=== PATIENT | male | born 1930 | race Caucasian/White ===

== ENCOUNTER 2019-03-30 08:56 | Emergency (ER) | payer OTHER ==
--- NOTE | 2019-03-30 09:08 | EDPHY ---
H & P Stated Complaint: near-syncope in shower this AM Time Seen by Provider: 03/30/19 09:08 HPI/ROS: CHIEF COMPLAINT: Presyncope HISTORY OF PRESENT ILLNESS: The patient presents to the ED after a presyncopal event that occurred in shower today. The patient was able to sit down did not pass out. He did not sustain any injury. The patient did have some symptoms of mild fatigue yesterday. He did skip lunch. He reports 1 episode of loose stools/diarrhea. The patient denies any chest pain or shortness of breath. He denies any fever or dysuria. He has no complaints of acute pain in the emergency department. The patient does take medicine for hypertension but did not take the medicine this morning. The patient denies any recent medication changes. He denies any remote history of fall or trauma. He denies any focal numbness or weakness. REVIEW OF SYSTEMS: A comprehensive 10 point review of systems is otherwise negative aside from elements mentioned in the history of present illness. Source: Patient Exam Limitations: No limitations - Personal History Current Tetanus/Diphtheria Vaccine: No Current Tetanus Diphtheria and Acellular Pertussis (TDAP): Yes - Medical/Surgical History Hx Asthma: Yes Hx Chronic Respiratory Disease: No Hx Diabetes: Yes Hx Cardiac Disease: Yes Hx Renal Disease: No Hx Cirrhosis: No Hx Alcoholism: No Hx HIV/AIDS: No Hx Splenectomy or Spleen Trauma: No Other PMH: asthma, HTN, DM2 - Social History Smoking Status: Never smoked - Physical Exam Exam: General Appearance: Obese male, no acute distress Eyes: Pupils equal and round no pallor or injection ENT, Mouth: Mucous membranes moist Respiratory: There are no retractions, lungs are clear to auscultation Cardiovascular: Regular rate and rhythm Gastrointestinal: Abdomen is soft and nontender, no masses, bowel sounds normal Neurological: A&O, normal motor function, normal sensory exam, normal cranial nerves Skin: Warm and dry, no rashes Musculoskeletal: Neck is supple nontender Extremities: symmetrical, full range of motion Psychiatric: Patient is oriented X 3, there is no agitation Constitutional: Initial Vital Signs Temperature (C) 36.8 C 03/30/19 09:00 Heart Rate 83 03/30/19 09:00 Respiratory Rate 16 03/30/19 09:00 Blood Pressure 115/56 L 03/30/19 09:00 O2 Sat (%) 94 03/30/19 09:00 O2 Delivery Mode Room Air Allergies/Adverse Reactions: No Known Allergies Allergy (Unverified 03/30/19 09:03) Home Medications: Medication Instructions Recorded Aspirin 03/30/19 Doxazosin Mesylate 03/30/19 Glyburide 03/30/19 Lisinopril 03/30/19 Lovastatin 03/30/19 Metformin 1000 mg 03/30/19 Probenecid 03/30/19 Verapamil 03/30/19 Medical Decision Making - Diagnostics EKG Interpretation: EKG: Complete interpretation has been separately recorded in the [facility] archive. Summary impression: Sinus rhythm, rate 83, unifocal PVCs, no ST segment elevation or depression ED Course/Re-evaluation: The patient presents to the ED after an episode of presyncope that occurred earlier today. The patient did have decreased intake yesterday. He denies any nino chest pain or shortness of breath. The patient was noted to be hemodynamically stable and neurologically intact upon arrival. The patient had an IV established. He received 2 L of normal saline. With IV fluid hydration he felt markedly better. The patient's urine dipstick demonstrates no evidence of an infection. The patient had multiple examinations over a 3 hr period. At 12:15 p.m. He is ambulatory without acute complaints. At this point time I do feel the patient can be discharged home. He has no evidence of a significant metabolic derangement, renal failure or arrhythmia. Differential Diagnosis: Differential diagnosis considered includes vasovagal episode, dehydration, renal failure, arrhythmia, anemia, urinary tract infection, metabolic abnormality - Data Points Laboratory Results: Laboratory Results 03/30/19 09:16 03/30/19 09:16 03/30/19 03/30/19 03/30/19 09:17 09:16 09:16 WBC 7.10 10^3/uL 10^3/uL (3.80-9.50) RBC 4.31 10^6/uL L 10^6/uL (4.40-6.38) Hgb 13.2 g/dL L g/dL (13.7-17.5) Hct 40.7 % % (40.0-51.0) MCV 94.4 fL fL (81.5-99.8) MCH 30.6 pg pg (27.9-34.1) MCHC 32.4 g/dL g/dL (32.4-36.7) RDW 13.2 % % (11.5-15.2) Plt Count 240 10^3/uL 10^3/uL (150-400) MPV 9.6 fL fL (8.7-11.7) Neut % (Auto) 73.1 % % (39.3-74.2) Lymph % (Auto) 15.4 % % (15.0-45.0) Stephenson % (Auto) 8.7 % % (4.5-13.0) Eos % (Auto) 2.1 % % (0.6-7.6) Baso % (Auto) 0.3 % % (0.3-1.7) Nucleat RBC Rel Count 0.0 % % (0.0-0.2) Absolute Neuts (auto) 5.19 10^3/uL 10^3/uL (1.70-6.50) Absolute Lymphs (auto) 1.09 10^3/uL 10^3/uL (1.00-3.00) Absolute Monos (auto) 0.62 10^3/uL 10^3/uL (0.30-0.80) Absolute Eos (auto) 0.15 10^3/uL 10^3/uL (0.03-0.40) Absolute Basos (auto) 0.02 10^3/uL 10^3/uL (0.02-0.10) Absolute Nucleated RBC 0.00 10^3/uL 10^3/uL (0-0.01) Immature Gran % 0.4 % % (0.0-1.1) Immature Gran # 0.03 10^3/uL 10^3/uL (0.00-0.10) Sodium 140 mEq/L mEq/L (135-145) Potassium 3.9 mEq/L mEq/L (3.5-5.2) Chloride 109 mEq/L mEq/L (97-110) Carbon Dioxide 18 mEq/l L mEq/l (22-31) Anion Gap 13 mEq/L mEq/L (6-14) BUN 25 mg/dL H mg/dL (7-23) Creatinine 1.1 mg/dL mg/dL (0.7-1.3) Estimated GFR > 60 Glucose 133 mg/dL H mg/dL (70-100) Calcium 9.3 mg/dL mg/dL (8.5-10.4) POC Troponin I 0.00 ng/mL ng/mL (0.00-0.08) Medications Given: Discontinued Medications Sodium Chloride (Ns) 1,000 mls @ 0 mls/hr IV EDNOW ONE; Wide Open PRN Reason: Protocol Stop: 03/30/19 09:10 Last Admin: 03/30/19 09:13 Dose: 1,000 mls Sodium Chloride (Ns) 1,000 mls @ 0 mls/hr IV EDNOW ONE; Wide Open PRN Reason: Protocol Stop: 03/30/19 11:13 Last Admin: 03/30/19 11:12 Dose: 1,000 mls Sodium Chloride (Ns) 1,000 mls @ 0 mls/hr IV EDNOW ONE; Wide Open PRN Reason: Protocol Stop: 03/30/19 11:13 Last Admin: 03/30/19 11:13 Dose: Not Given Point of Care Test Results: Chemistry 03/30/19 09:17 POC Troponin I 0.00 ng/mL ng/mL (0.00-0.08) Departure - Departure Disposition: Home, Routine, Self-Care Clinical Impression: Dehydration, Pre-syncope Condition: Good Instructions: Syncope (ED) Additional Instructions: 1. Please return to the emergency department for any worsening symptoms or other concerns. 2. I do believe your mildly dehydrated today which likely precipitated her symptoms. 3. The workup in the emergency department is unrevealing aside from evidence of mild dehydration 4. Please follow-up with your primary care provider as scheduled. Referrals: Melina Avilez MD [Primary Care Provider] - As per Instructions
[2019-03-30] MEDS ORDERED: NS 1,000 ML IV ONE ×3 (09:09→11:12)
--- NOTE | 2019-03-30 09:29 | CPEKG ---
Test Reason : OPEN Blood Pressure : / mmHG Vent. Rate : 083 BPM Atrial Rate : 082 BPM P-R Int : 204 ms QRS Dur : 092 ms QT Int : 414 ms P-R-T Axes : 035 029 008 degrees QTc Int : 487 ms Sinus rhythm Multiple ventricular premature complexes Borderline T wave abnormalities Borderline prolonged QT interval Confirmed by Justin Shelton ([id number]) on 03/30/2019 9:28:34 AM Referred By: Justin Shelton Confirmed By:Justin Shelton
[2019-03-30 09:52] LABS: PLATELET COUNT 240 10^3/uL (150-400)
[2019-03-30 12:37] VITALS: BP 117/68
== END 2019-03-30 12:36 | disposition home or self-care (01) ==
LOC: EDUNIT# → SUPCPDRO 08:56
DX: E86.0 Dehydration (principal); R55 Syncope and collapse; I10 Essential (primary) hypertension; E11.9 Type 2 diabetes mellitus without complications; Z79.4 Long term (current) use of insulin; Z79.899 Other long term (current) drug therapy
CPT/HCPCS: 84484-ER